=== PATIENT | female | born 1960 | race Caucasian/White ===

== ENCOUNTER → 2016-07-18 | Outpatient (CLI) | payer OTHER | LOC: RAD 11:26 | DX: Z01.818 Encounter for other preprocedural examination (principal); G47.33 Obstructive sleep apnea (adult) (pediatric); I10 Essential (primary) hypertension; R12 Heartburn | CPT/HCPCS: 71020 ==

== ENCOUNTER 2016-07-31 14:32 | Emergency (ER) | payer OTHER ==
[2016-07-31 17:42] LABS: HEMOGLOBIN 14.9 gm/dl (12.3-15.3); RED BLOOD COUNT 4.88 M/UL (4.00-5.10); WHITE BLOOD COUNT 13.9 K/UL (4.5-11.0)
[2016-07-31 17:59] LABS: BUN/CREATININE RATIO 22 (0-10)
== END 2016-07-31 23:33 | disposition home or self-care (01) ==
LOC: ER1 14:32
PROVIDERS: Student in an Organized Health Care Education/Training Program
DX: K52.9 Noninfective gastroenteritis and colitis, unspecified (principal); Z90.49 Acquired absence of other specified parts of digestive tract
CPT/HCPCS: 36415; 80053; 82272; 82728; 83540; 83550; 83690; 85025; 85610; 85730; 96374; 96375; 99284; C9113; J1956; J2405; J7030; J7050; Q9962; Q9963

== ENCOUNTER → 2016-08-10 | Outpatient (CLI) | payer OTHER | LOC: US 11:11 → KOH-I 11:11 → MRI 11:11 → US 15:00 | DX: R53.1 Weakness (principal); F45.8 Other somatoform disorders; M79.605 Pain in left leg; M79.89 Other specified soft tissue disorders | CPT/HCPCS: 71020; 93971 ==

== ENCOUNTER → 2016-09-17 | Outpatient (CLI) | payer OTHER | LOC: EMI 16:45 | DX: M54.5 Low back pain (principal); R20.2 Paresthesia of skin; R20.0 Anesthesia of skin; M47.896 Other spondylosis, lumbar region | CPT/HCPCS: 72148 ==

== ENCOUNTER → 2020-04-04 | Outpatient (CLI) | payer MEDICARE | LOC: RAD 14:34 | DX: M54.5 Low back pain (principal); M25.551 Pain in right hip; M47.816 Spondylosis without myelopathy or radiculopathy, lumbar region; M51.36 Other intervertebral disc degeneration, lumbar region | CPT/HCPCS: 72100; 73502 ==

== ENCOUNTER → 2020-09-10 | Outpatient (CLI) | payer MEDICARE, OTHER | LOC: LAB 11:17 | DX: R20.0 Anesthesia of skin (principal); R20.2 Paresthesia of skin; M25.512 Pain in left shoulder; K59.00 Constipation, unspecified; M47.816 Spondylosis without myelopathy or radiculopathy, lumbar region | CPT/HCPCS: 72100; 73030; 74018 ==

== ENCOUNTER → 2021-10-21 | Outpatient (CLI) | payer MEDICARE | LOC: RAD 10-14 08:30 | DX: K21.00 Gastro-esophageal reflux disease with esophagitis, without bleeding (principal); K22.89 Other specified disease of esophagus; Z98.84 Bariatric surgery status | CPT/HCPCS: 74246; 74248 ==